=== PATIENT | male | born 1995 | race Caucasian/White ===

== ENCOUNTER 2016-08-17 19:29 | Emergency (ER) | payer BC, OTHER ==
[~2016-08-17] VITALS: Ht 165.1 cm; Wt 56.7 kg
[2016-08-17 19:52] VITALS: BP 135/80
--- NOTE | 2016-08-17 22:01 | NUR ---
AMBULATED TO ER OF1
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
--- NOTE | 2016-08-17 22:26 | NUR ---
Patient being evaluated by physician.
[2016-08-17] MEDS ORDERED: BACITRACIN OINT 500 UNITS/GM PKT TP ONE (22:35)
[2016-08-17 22:37] VITALS: BP 128/76
--- NOTE | 2016-08-17 22:37 | NUR ---
Patient discharged with v/s stable. Written and verbal after care instructions given and explained. Patient alert, oriented and verbalized understanding of instructions. Ambulatory with steady gait. All questions addressed prior to discharge. ID band removed. Patient advised to follow up with PMD OR RETURN TO ER IF CONDITION GETS WORSE.Opportunity to ask questions provided and answered.
== END 2016-08-17 22:37 | disposition home or self-care (01) ==
LOC: MED 19:29
DX: S80.212A Abrasion, left knee, initial encounter (principal); S80.211A Abrasion, right knee, initial encounter; V13.4XXA Pedal cycle driver injured in collision with car, pick-up truck or van in traffic accident, initial encounter; Y93.89 Activity, other specified; Y92.89 Other specified places as the place of occurrence of the external cause; Y99.8 Other external cause status
CPT/HCPCS: 73562; 99284

== ENCOUNTER 2022-12-27 13:46 | Emergency (ER) | payer BC, OTHER ==
[~2022-12-27] VITALS: Ht 165.1 cm; Wt 70.3 kg
[2022-12-27 13:57] VITALS: BP 124/67; PULSE 90; RESP 17; TEMP 97.4; O2SAT 98
[2022-12-27] MEDS ORDERED: PRED20TA5 PO (14:59)
[2022-12-27] MEDS ORDERED: IBUP-2213 PO (14:59)
[2022-12-27] MEDS ORDERED: FAMO-90 PO (14:59)
[2022-12-27 16:45] VITALS: BP 115/68; PULSE 71; RESP 17; O2SAT 98
[2022-12-27 17:01] LABS: FLU A ANTIGEN negative (NEGATIVE); FLU B ANTIGEN NEGATIVE (NEGATIVE)
== END 2022-12-27 16:46 | disposition home or self-care (01) ==
LOC: MED 13:46
DX: B34.9 Viral infection, unspecified (principal); L50.0 Allergic urticaria; Z79.899 Other long term (current) drug therapy; Z20.822 Contact with and (suspected) exposure to COVID-19
CPT/HCPCS: 99283

== ENCOUNTER 2023-01-26 22:14 | Emergency (ER) | payer OTHER ==
[~2023-01-26] VITALS: Ht 157.5 cm; Wt 57.2 kg
[~2023-01-26 22:14] MED LIST: FAMO-90 PO; IBUP-2213 PO; PRED20TA5 PO
[2023-01-26 22:47] VITALS: BP 131/74; PULSE 67; RESP 16; TEMP 98.3; O2SAT 99
[2023-01-27] MEDS ORDERED: IBUP-2213 PO (00:39)
[2023-01-27] MEDS ORDERED: LID5T TP (00:39)
[2023-01-27] MEDS ORDERED: CYCL-711 PO (00:39)
== END 2023-01-27 00:47 | disposition home or self-care (01) ==
LOC: MED 22:14
DX: S29.012A Strain of muscle and tendon of back wall of thorax, initial encounter (principal); Z79.899 Other long term (current) drug therapy; Z79.1 Long term (current) use of non-steroidal anti-inflammatories (NSAID); W01.198A Fall on same level from slipping, tripping and stumbling with subsequent striking against other object, initial encounter; Y92.89 Other specified places as the place of occurrence of the external cause; Y93.89 Activity, other specified; Y99.8 Other external cause status
CPT/HCPCS: 99283

== ENCOUNTER 2023-01-31 21:21 | Emergency (ER) | payer OTHER ==
[~2023-01-31] VITALS: Ht 165.1 cm; Wt 58.1 kg
[~2023-01-31 21:21] MED LIST changes: +CYCL-711 PO; +LID5T TP
[2023-01-31 21:35] VITALS: BP 126/76; PULSE 66; RESP 17; TEMP 97.7; O2SAT 97
[2023-01-31] MEDS ORDERED: KETOROLAC 30 MG/ML VIAL IM ONE (22:35)
[2023-01-31] MEDS ORDERED: CYCL-711 PO (23:16)
[2023-01-31] MEDS ORDERED: NAPR-54 PO (23:16)
== END 2023-01-31 23:30 | disposition home or self-care (01) ==
LOC: MED 21:21
DX: M54.9 Dorsalgia, unspecified (principal); Z79.899 Other long term (current) drug therapy
CPT/HCPCS: 71046; 96372; 99283; J1885

== ENCOUNTER 2023-06-22 18:49 | Emergency (ER) | payer OTHER ==
[~2023-06-22] VITALS: Ht 165.1 cm; Wt 58.1 kg
[~2023-06-22 18:49] MED LIST changes: +NAPR-54 PO
[2023-06-22 19:36] VITALS: BP 114/72; PULSE 68; RESP 14; TEMP 98.7; O2SAT 98
[2023-06-22 20:20] VITALS: O2SAT 99
[2023-06-22] MEDS: LIDOCAINE 5% 1 EA PATCH TP ONE (20:32)
[2023-06-22] MEDS: KETOROLAC 30 MG/ML VIAL IM ONE (20:35)
[2023-06-22] MEDS ORDERED: NAPR-1704 PO (21:32)
[2023-06-22] MEDS ORDERED: LID5T TP (21:32)
[2023-06-22] MEDS ORDERED: ACET-10509 PO (21:32)
== END 2023-06-22 21:39 | disposition home or self-care (01) ==
LOC: MED 18:49
DX: S39.012A Strain of muscle, fascia and tendon of lower back, initial encounter (principal); Z79.899 Other long term (current) drug therapy; W18.30XA Fall on same level, unspecified, initial encounter; Y93.89 Activity, other specified; Y92.89 Other specified places as the place of occurrence of the external cause; Y99.8 Other external cause status
CPT/HCPCS: 72080; 99283; J1885

== ENCOUNTER 2024-01-08 19:12 | Emergency (ER) | payer OTHER ==
[~2024-01-08] VITALS: Ht 165.1 cm; Wt 56.7 kg
[~2024-01-08 19:12] MED LIST changes: +ACET500T99 PO; +NAPR-1704 PO; +NAPR-337 PO; -NAPR-54 PO
[2024-01-08 19:43] VITALS: BP 119/68; PULSE 56; RESP 16; TEMP 97.2; O2SAT 99
--- NOTE | 2024-01-08 19:48 | NUR ---
TO LOBBY FOLLOWING TRIAGE
[2024-01-08] MEDS ORDERED: ACET500T99 PO (20:25)
[2024-01-08] MEDS ORDERED: PROM118S5 PO (20:25)
[2024-01-08] MEDS ORDERED: FLONAS NS (20:25)
[2024-01-08 20:34] VITALS: BP 118/82; PULSE 58; RESP 16; TEMP 97.2; O2SAT 99
--- NOTE | 2024-01-08 20:34 | NUR ---
Patient discharged with v/s stable. Written and verbal after care instructions given and explained. Patient alert, oriented and verbalized understanding of instructions. Ambulatory with to car. All questions addressed prior to discharge. ID band removed. Patient advised to follow up with PMD. Rx of TYLENOL, FLONASE, PROMETHAZINE-dm given. Patient educated on indication of medication including possible reaction and side effects. Opportunity to ask questions provided and answered.
== END 2024-01-08 20:34 | disposition home or self-care (01) ==
LOC: MED 19:12
DX: J06.9 Acute upper respiratory infection, unspecified (principal); B97.89 Other viral agents as the cause of diseases classified elsewhere; Z79.899 Other long term (current) drug therapy
CPT/HCPCS: 99283

== ENCOUNTER 2024-03-05 22:52 | Emergency (ER) | payer OTHER ==
[~2024-03-05] VITALS: Ht 165.1 cm; Wt 59.0 kg
[~2024-03-05 22:52] MED LIST changes: +FLONAS NS; +PROM118S5 PO
[2024-03-05 23:16] VITALS: BP 115/70; PULSE 58; RESP 16; TEMP 97; O2SAT 99
== END 2024-03-05 23:43 | disposition home or self-care (01) ==
LOC: MED 22:52
DX: M25.562 Pain in left knee (principal); Z79.899 Other long term (current) drug therapy
CPT/HCPCS: 99281